=== PATIENT | male | born 1960 | race African-American/Black ===

== ENCOUNTER 2016-09-15 19:24 | Emergency (ER) | payer SELFPAY ==
--- NOTE | ~2016-09-15 | CT4 ---
[facility] A Service of [facility] RADIOLOGY TEXT RESULTS PATIENT: CARRIE REYES LOCATION: [place] : [birth year] UNIT #: [id number] AGE: [address]: Tala Akers MD SEX: M ORDER DR: [id number] [facility]. [place], [place] [address] [id number] E MR#: [id number] #: [id number] NAME: CARRIE REYES : 1960 SEX: M STUDY DATE/TIME: 09/15/2016 18:14 UNIT: [facility] ROOM: STUDY DESCRIPTION: CT Abd and Pelv Wo Cont Attending Physician: Tala Akers M.D. Ordering Physician: Tala Akers M.D. MEDICAL IMAGING REPORT This report is preliminary unless electronic signature is present EXAM CT abdomen and pelvis without contrast 09/15/2016 HISTORY Right lower back pain for 3 days. COMPARISON None. TECHNIQUE This CT examination was performed with one or more of the following radiation dose reduction techniques: automatic exposure control, adjustment of mA and/or kV according to patient size, and iterative reconstruction. PROCEDURE 3 mm noncontrast axial images through the abdomen and pelvis. Enteric contrast was not administered. Sagittal and coronal reformatted images were obtained. FINDINGS ABDOMEN: No renal or ureteral stone, hydronephrosis or hydroureter is seen. The kidneys have a normal noncontrast appearance. The appendix is not visualized but no pericecal inflammatory changes are evident. Moderate stool burden is seen within the ascending and transverse colon. No evidence of high-grade large or small bowel obstruction. Lung bases are free of consolidation. The gallbladder is contracted and is poorly visualized. Noncontrast appearance of the liver, spleen, pancreas, adrenals within normal limits. PELVIS: Urinary bladder, prostate and rectum are normal. No pelvic adenopathy or free fluid is identified. [facility] A Service of [facility] RADIOLOGY TEXT RESULTS PATIENT: CARRIE REYES LOCATION: [place] : [birth year] UNIT #: [id number] AGE: [address]: Tala Akers MD SEX: M ORDER DR: Degenerative loss of disc height is present at L5-S1. Presumed bone island within the left iliac wing. No acute osseous abnormalities are identified. IMPRESSION 1. No acute findings in the abdomen or pelvis. 2. No urinary tract stone or hydronephrosis is seen. 3. The appendix is not visualized. No pericecal inflammation is evident. 4. The gallbladder is contracted and is poorly visualized. 5. Moderate stool burden in the ascending, transverse colon. 6. Degenerative disc changes at L5-S1. Dictated by... Ana Michaud M.D. THIS IS AN ELECTRONICALLY VERIFIED REPORT Ana Michaud M.D. at 09/17/2016 11:57 AM BYRON/gadiel TD: 09/16/2016 08:21 JOB #: [id number] MEDICAL IMAGING REPORT COPY
[2016-09-15 16:53] LABS: URINE SOURCE CLEAN CATCH
[2016-09-15 16:59] LABS: URINE APPEARANCE CLEAR; URINE BILIRUBIN NEG (NEG); URINE BLOOD NEG (NEG); URINE COLOR YELLOW; URINE GLUCOSE NEG (NEG); URINE KETONE NEG (NEG); URINE LEUKOCYTE ESTERASE NEG (NEG); URINE NITRATE NEG (NEG); URINE PROTEIN NEG (NEG); URINE SPECIFIC GRAVITY 1.027 (1.003-1.035)
[2016-09-15 17:03] LABS: BASOPHIL% 0.2 % (0-2.5); EOSINOPHIL# 1.1 X10e3 (0-0.7); EOSINOPHIL% 10.2 % (0.0-7.0); HEMATOCRIT 45.2 % (38.0-50.0); HEMOGLOBIN 14.4 gm/dL (13.0-16.0); LYMPHOCYTE# 1.5 X10e3 (1.0-3.5); LYMPHOCYTE% 13.5 % (17.0-45.0); MEAN CORPUSCULAR HEMOGLOBIN 26.7 PG (28-34); MEAN CORPUSCULAR HGB CONC 31.8 g/dL (30-36); MEAN PLATELET VOLUME 9.2 FL (6.5-11.5); MONOCYTE# 0.9 X10e3 (0-1.0); MONOCYTE% 8.4 % (3.0-12.0); NEUTROPHIL# 7.5 X10e3 (1.5-7.1); NEUTROPHIL% 67.7 % (40-75); PLATELET COUNT 259 X10e3 (140-420); RED BLOOD COUNT 5.38 X10e (3.90-5.60); RED CELL DISTRIBUTION WIDTH 14.3 % (11.0-15.5); WHITE BLOOD COUNT 11.1 X10e3 (4.0-10.5)
[2016-09-15 17:05] LABS: DIFF IND NO
[2016-09-15 17:06] LABS: CULTURE INDICATED? NO
[2016-09-15 17:19] LABS: AMPHETAMINE NEG (NEG); BARBITURATES NEG (NEG); BENZODIAZEPINES NEG (NEG); COCAINE NEG (NEG); MARIJUANA NEG (NEG); OPIATES POS (NEG); TRICYCLIC ANTIDEPRESSANTS NEG (NEG); U METHADONE NEG (NEG)
[2016-09-15 17:26] LABS: ALBUMIN SERUM 3.9 g/dL (3.5-5.0); ALKALINE PHOSPHATASE 51 U/L (32-92); ALT (SGPT) 21 U/L (10-40); AST (SGOT) 18 U/L (10-42); BILIRUBIN, DIRECT 0.2 mg/dL (0.0-0.2); BILIRUBIN,INDIRECT 0.7 mg/dL (0.0-0.9); BILIRUBIN,TOTAL 0.9 mg/dL (0.2-2.0); BLOOD UREA NITROGEN 13 mg/dL (9-23); BUN/CREATININE RATIO 18.57; CALCIUM SERUM 8.9 mg/dL (8.4-10.2); CARBON DIOXIDE 29 mmol/L (22-31); CHLORIDE 99 mmol/L (100-111); CREATININE SERUM 0.7 mg/dL (0.6-1.4); GLOM FILT RATE Estimated ABOVE60 mL/min (>60); GLUCOSE FASTING 100 mg/dL (70-110); POTASSIUM 3.8 mmol/L (3.5-5.1); SODIUM 137 mmol/L (135-145)
== END 2016-09-15 20:00 | disposition home or self-care (01) ==
LOC: CED 19:24
PROVIDERS: Emergency Medicine
DX: R10.9 Unspecified abdominal pain (principal); I10 Essential (primary) hypertension
CPT/HCPCS: 36415; 74176; 80048; 80076; 80307; 81003; 85025; 96361; 96374; 96375; 99284; J1170; J2405

== ENCOUNTER 2016-09-20 17:45 | Emergency (ER) | payer SELFPAY ==
--- NOTE | ~2016-09-20 | CT2 ---
[facility] A Service of [facility] RADIOLOGY TEXT RESULTS PATIENT: CARRIE REYES LOCATION: [place] : [birth year] UNIT #: [id number] AGE: [address]: Josiah Brock DO SEX: M ORDER DR: [id number] [facility] [address] [place] [address] [place], [place] [address] [id number] E MR#: [id number] #: [id number] NAME: CARRIE REYES : 1960 SEX: M STUDY DATE/TIME: 09/20/2016 18:31 UNIT: [facility] ROOM: STUDY DESCRIPTION: CT Abd and Pelv W Cont Attending Physician: Josiah Brock D.O. Ordering Physician: Josiah Brock D.O. Primary Care Physician: Primary Care Physician No MEDICAL IMAGING REPORT This report is preliminary unless electronic signature is present EXAM CT abdomen and pelvis with contrast, 09/20/2016 INDICATION Abdominal pain, back pain, fever and diarrhea for the past 2 weeks. PROCEDURE Contrast-enhanced CT of the abdomen and pelvis. This CT exam was performed with one or more of the following radiation dose reduction techniques: automatic exposure control, adjustment of mA and/or kV according to patient size, and iterative reconstruction. COMPARISON 09/15/2016 FINDINGS ABDOMEN WITH CONTRAST: The included lung bases are clear. The liver, spleen, kidneys, adrenal glands, pancreas, and gallbladder unremarkable. The bowel loops are nondilated. The appendix is normal. No pelvic mass or fluid. No aggressive appearing bone lesion. IMPRESSION No acute findings in the abdomen or pelvis. The appendix is normal. Dictated by... Chet Sellers M.D. THIS IS AN ELECTRONICALLY VERIFIED REPORT Chet Sellers M.D. at 09/22/2016 7:00 AM [facility] A Service [facility] RADIOLOGY TEXT RESULTS PATIENT: CARRIE REYES LOCATION: [facility] : [birth year] UNIT #: [id number] AGE: [address]: Josiah Brock DO SEX: M ORDER DR: CHAIM/bhavesh TD: 09/21/2016 02:54 JOB #: [id number] MEDICAL IMAGING REPORT COPY
[2016-09-20 16:45] LABS: BASOPHIL% 0.2 % (0-2.5); EOSINOPHIL# 1.6 X10e3 (0-0.7); EOSINOPHIL% 16.8 % (0.0-7.0); HEMATOCRIT 42.7 % (38.0-50.0); HEMOGLOBIN 13.8 gm/dL (13.0-16.0); LYMPHOCYTE# 1.3 X10e3 (1.0-3.5); LYMPHOCYTE% 13.5 % (17.0-45.0); MEAN CELL VOLUME 84.4 FL (83-96); MEAN CORPUSCULAR HEMOGLOBIN 27.3 PG (28-34); MEAN CORPUSCULAR HGB CONC 32.3 g/dL (30-36); MEAN PLATELET VOLUME 8.5 FL (6.5-11.5); MONOCYTE# 0.8 X10e3 (0-1.0); MONOCYTE% 7.9 % (3.0-12.0); NEUTROPHIL% 61.6 % (40-75); PLATELET COUNT 227 X10e3 (140-420); RED BLOOD COUNT 5.06 X10e (3.90-5.60); RED CELL DISTRIBUTION WIDTH 14.5 % (11.0-15.5); WHITE BLOOD COUNT 9.7 X10e3 (4.0-10.5)
[2016-09-20 16:49] LABS: DIFF IND NO
[2016-09-20 16:53] LABS: URINE SOURCE CLEAN CATCH
[2016-09-20 16:59] LABS: INR 1.1; PARTIAL THROMBOPLASTIN TIME 25.7 SECONDS (23.5-31.3); PROTHROMBIN TIME (PATIENT) 11.2 SECONDS (9.6-11.5)
[2016-09-20 17:07] LABS: URINE APPEARANCE TURBID; URINE BILIRUBIN NEG (NEG); URINE BLOOD NEG (NEG); URINE COLOR YELLOW; URINE GLUCOSE NEG (NEG); URINE KETONE TRACE (NEG); URINE LEUKOCYTE ESTERASE NEG (NEG); URINE NITRATE NEG (NEG); URINE PROTEIN TRACE (NEG); URINE SPECIFIC GRAVITY 1.025 (1.003-1.035); URINE UROBILINOGEN 0.2 MG/DL (NEG)
[2016-09-20 17:17] LABS: CULTURE INDICATED? NO
[2016-09-20 17:17] LABS: ALBUMIN SERUM 3.9 g/dL (3.5-5.0); ALKALINE PHOSPHATASE 50 U/L (32-92); ALT (SGPT) 11 U/L (10-40); AST (SGOT) 12 U/L (10-42); BILIRUBIN,TOTAL 0.6 mg/dL (0.2-2.0); BLOOD UREA NITROGEN 10 mg/dL (9-23); BUN/CREATININE RATIO 14.28; CARBON DIOXIDE 28 mmol/L (22-31); CHLORIDE 105 mmol/L (100-111); CREATININE SERUM 0.7 mg/dL (0.6-1.4); GLOM FILT RATE Estimated ABOVE60 mL/min (>60); GLUCOSE FASTING 105 mg/dL (70-110); POTASSIUM 3.8 mmol/L (3.5-5.1); PROTEIN TOTAL SERUM 6.8 g/dL (6.0-8.3); SODIUM 140 mmol/L (135-145)
[2016-09-20 17:24] LABS: AMPHETAMINE NEG (NEG); BARBITURATES NEG (NEG); BENZODIAZEPINES NEG (NEG); COCAINE NEG (NEG); MARIJUANA NEG (NEG); OPIATES POS (NEG); TRICYCLIC ANTIDEPRESSANTS NEG (NEG); U METHADONE NEG (NEG)
== END 2016-09-20 22:05 | disposition home or self-care (01) ==
LOC: CED 17:45
PROVIDERS: Emergency Medicine
DX: R10.9 Unspecified abdominal pain (principal); M54.9 Dorsalgia, unspecified
CPT/HCPCS: 36415; 74177; 80053; 80307; 81003; 83690; 84484; 85025; 85379; 85610; 85730; 96374; 96375; 96376; 99284; J2270; J2405; Q9967